=== PATIENT | male | born 1975 | race Asian ===

== ENCOUNTER 2017-07-19 10:27 | Emergency (ER) | payer SELFPAY ==
[~2017-07-19] VITALS: Ht 170.2 cm; Wt 70.5 kg
[2017-07-19 10:44] VITALS: BP 147/99
== END 2017-07-19 12:12 | disposition home or self-care (01) ==
LOC: EMS 10:28
DX: M54.5 Low back pain (principal); R31.9 Hematuria, unspecified; F17.210 Nicotine dependence, cigarettes, uncomplicated
CPT/HCPCS: 99282; 99406